=== PATIENT | female | born 1995 | race African-American/Black ===

== ENCOUNTER 2022-02-27 19:40 | Emergency (ER) | payer BC ==
[2022-02-27 19:52] VITALS: BP 0/0; BMI 31.4
== END 2022-02-27 22:59 | disposition home or self-care (01) ==
LOC: FER 19:40
DX: O20.0 Threatened abortion (principal); Z3A.01 Less than 8 weeks gestation of pregnancy
CPT/HCPCS: 36415; 76817-TC; 84702; 86850; 86900; 86901; 99284-25

== ENCOUNTER 2022-03-02 22:32 | Emergency (ER) | payer OTHER, BC ==
[2022-03-02 22:39] VITALS: BP 122/84; PULSE 100; TEMP 98.3; BMI 30.1
[2022-03-02] MEDS ORDERED: ACETAMINOPHEN 500 MG TABLET (FP) PO ONE (23:43)
[2022-03-02] MEDS ORDERED: ACETAMINOPHEN 500 MG TABLET (FP) ONE (23:44)
== END 2022-03-03 00:27 | disposition home or self-care (01) ==
LOC: FER 22:32
DX: S16.1XXA Strain of muscle, fascia and tendon at neck level, initial encounter (principal); S39.012A Strain of muscle, fascia and tendon of lower back, initial encounter; V49.40XA Driver injured in collision with unspecified motor vehicles in traffic accident, initial encounter
CPT/HCPCS: 72050-TC-FY; 99283-25

== ENCOUNTER 2022-03-20 21:28 | Emergency (ER) | payer BC ==
[2022-03-20 21:42] VITALS: BP 124/84; PULSE 104; TEMP 99.1; BMI 30.2
[2022-03-20] MEDS ORDERED: IBUPROFEN 600 MG TABLET (FP) PO ONE ×2 (21:49→21:54)
== END 2022-03-20 22:36 | disposition home or self-care (01) ==
LOC: FER 21:28
DX: S16.1XXA Strain of muscle, fascia and tendon at neck level, initial encounter (principal); S39.012A Strain of muscle, fascia and tendon of lower back, initial encounter; V49.40XA Driver injured in collision with unspecified motor vehicles in traffic accident, initial encounter
CPT/HCPCS: 72050-TC-FY; 72100-TC-FY; 81025; 99284-25

== ENCOUNTER 2023-07-17 12:09 | Emergency (ER) | payer BC, OTHER ==
[2023-07-17 12:23] VITALS: BP 139/89; PULSE 89; RESP 18; TEMP 99.2; BMI 29.2
[2023-07-17] MEDS ORDERED: ACETAMINOPHEN 500 MG TABLET (FP) PO ONE (12:46)
[2023-07-17] MEDS ORDERED: SODIUM CHLORIDE 0.9% 500 ML INFUS.BAG IV ONE (12:47)
[2023-07-17] MEDS ORDERED: ACETAMINOPHEN 325 MG TABLET (FP) ONE (13:14)
[2023-07-17 13:16] LABS: HCG,QUALITATIVE URINE Negative
[2023-07-17 13:21] LABS: HEMATOCRIT 37.8 % (32.4-45.2); MCH 25.8 pg (25.7-33.7); MCHC 31.7 g/dl (32.0-36.0); MEAN CELL VOLUME 81.2 fl (80-96); MEAN PLT VOLUME 7.6 fl (7.5-11.1); PLATELET COUNT 368.3 10^3/uL (134-434); RBC 4.65 10^6/uL (3.60-5.2); RDW 16.5 % (11.6-15.6); WHITE BLOOD COUNT 7.7 10^3/uL (4.0-10.8)
[2023-07-17 13:29] LABS: ALBUMIN 4.2 g/dl (3.4-5.0); BILIRUBIN,TOTAL 0.4 mg/dl (0.2-1); BLOOD UREA NITROGEN 6.8 mg/dl (7-18); CALCIUM 9.1 mg/dl (8.5-10.1); CREATININE 0.7 mg/dl (0.6-1.3); PLATELET ESTIMATE ADEQUATE; POTASSIUM 3.6 mmol/L (3.5-5.1); SGOT/AST 22.3 U/L (15-37); SGPT/ALT 29.3 U/L (7-52); TOT PROT 7.1 g/dl (6.4-8.2)
[2023-07-17 13:31] LABS: EPITHELIAL CELLS RARE /hpf
[2023-07-17] MEDS ORDERED: FLUCONAZOLE 150 MG TABLET PO ONE ×2 (15:48→15:59)
== END 2023-07-17 16:18 | disposition home or self-care (01) ==
LOC: FER 12:09
DX: R10.9 Unspecified abdominal pain (principal); Z32.02 Encounter for pregnancy test, result negative; N83.201 Unspecified ovarian cyst, right side; B37.31 Acute candidiasis of vulva and vagina
CPT/HCPCS: 36415; 76817-TC; 80053; 81003; 81015; 84702; 84703; 85027; 86850; 86900; 86901; 87086; 87186; 99284-25

== ENCOUNTER 2024-06-07 19:33 | Emergency (ER) | payer OTHER ==
[2024-06-07 19:52] VITALS: BP 135/94; PULSE 88; RESP 18; TEMP 98.1; BMI 31.5
[2024-06-07] MEDS ORDERED: NAPROXEN 500 MG TABLET ONE (20:13)
[2024-06-07] MEDS: NAPROXEN 500 MG TABLET PO ONE (20:14)
== END 2024-06-07 20:20 | disposition home or self-care (01) ==
LOC: FER 19:33
DX: M25.512 Pain in left shoulder (principal); R07.89 Other chest pain
CPT/HCPCS: 93005; 99283-25

== ENCOUNTER 2024-12-26 15:19 | Emergency (ER) | payer OTHER ==
[2024-12-26] MEDS: SODIUM CHLORIDE 1,000 ML IV ONE (16:36)
[2024-12-26 16:47] VITALS: BP 114/65; PULSE 100; RESP 18; TEMP 98.6; BMI 31.1
[2024-12-26 16:59] LABS: ALBUMIN 4.8 g/dl (3.4-5.0); BILIRUBIN,TOTAL 0.5 mg/dl (0.2-1); CALCIUM 10.5 mg/dl (8.5-10.1); CREATININE 0.6 mg/dl (0.6-1.3); POTASSIUM 4.1 mmol/L (3.5-5.1); TOT PROT 7.6 g/dl (6.4-8.2)
[2024-12-26 17:12] LABS: HEMATOCRIT 38.2 % (32.4-45.2); MCH 26.9 pg (25.7-33.7); MCHC 34.1 g/dl (32.0-36.0); MEAN PLT VOLUME 8.5 fl (7.5-11.1); PLATELET COUNT 309.2 10^3/uL (134-434); RBC 4.84 10^6/uL (3.60-5.2); RDW 15.7 % (11.6-15.6); WHITE BLOOD COUNT 5.7 10^3/uL (4.0-10.8)
[2024-12-26 17:22] LABS: HCG,QUALITATIVE URINE Negative
[2024-12-26 17:29] LABS: PLATELET ESTIMATE ADEQUATE
[2024-12-26 17:37] LABS: EPITHELIAL CELLS 0-5 /hpf
[2024-12-26 18:05] LABS: VENOUS BASE EXCESS -1.1 mmol/L (-2-2); VENOUS O2 SATURATION 63.4 % (70-80); VENOUS PCO2 41.9 mmHg (38-52); VENOUS PH 7.377 (7.310-7.410)
== END 2024-12-26 18:33 | disposition home or self-care (01) ==
LOC: FER 15:19
PROC: 3E0337Z Introduction of Electrolytic and Water Balance Substance into Peripheral Vein, Percutaneous Approach (ICD-10-PCS; principal; 2024-12-26)
DX: E11.65 Type 2 diabetes mellitus with hyperglycemia (principal); R30.0 Dysuria; R35.89 Other polyuria; J02.9 Acute pharyngitis, unspecified
CPT/HCPCS: 36415; 80053; 81003; 81015; 82010; 82803; 84703; 85027; 87086; 87651; 99284-25